=== PATIENT | male | born 1970 | race Asian ===

== ENCOUNTER → 2018-06-11 09:46 | Outpatient (CLI) | payer OTHER, SELFPAY ==
[2018-06-11 11:03] LABS: Hemoglobin A1C% w Est Avg Glu 8.5 % (4.0-6.0)
== END ==
PROVIDERS: PCP Family Medicine; Visit Provider Family Medicine
DX: E11.9 Type 2 diabetes mellitus without complications (principal)
CPT/HCPCS: 36415; 83036

== ENCOUNTER → 2018-09-01 09:50 | Outpatient (CLI) | payer OTHER, SELFPAY ==
[2018-09-01 11:00] LABS: Hemoglobin A1C% w Est Avg Glu 7.5 % (4.0-6.0)
[2018-09-01 11:56] LABS: Creatinine Urine Random 268.1 mg/dL
[2018-09-01 11:57] LABS: Alanine Aminotransferase 42 IU/L (21-72); Albumin 4.4 g/dL (3.5-5.0); Albumin Globulin Ratio 1.6 (1.0-2.8); Alkaline Phosphatase 94 U/L (38-126); Aspartate Aminotransferase 25 IU/L (17-59); BUN Creatinine Ratio 14.5 (6-22); Bilirubin Total 0.5 mg/dL (0.2-1.3); Blood Urea Nitrogen 16 mg/dL (9-20); Calcium 9.6 mg/dL (8.4-10.2); Carbon Dioxide 27 mmol/L (22-32); Chloride 101 mmol/L (98-107); Estimated Glomerular Filt Rate > 60.0 mL/min (>60); Globulin 2.7 g/dL (1.7-4.1); Glucose 118 mg/dL (70-100); HEMOLYSIS 15 (0-50); Potassium 4.7 mmol/L (3.4-5.1); Sodium 142 mmol/L (137-145); Total Protein 7.1 g/dL (6.3-8.2)
[2018-09-01 13:13] LABS: Microalbumi Creatinin Ratio Ur 1402.4 ug/mg CR (<30)
== END ==
PROVIDERS: PCP Family Medicine; Visit Provider Family Medicine
DX: E11.9 Type 2 diabetes mellitus without complications (principal)
CPT/HCPCS: 36415; 80053; 82043; 82570; 83036

== ENCOUNTER → 2018-12-03 10:41 | Outpatient (CLI) | payer OTHER, SELFPAY ==
[2018-12-03 12:07] LABS: Hemoglobin A1C% w Est Avg Glu 8.3 % (4.0-6.0)
== END ==
PROVIDERS: PCP Family Medicine; Visit Provider Family Medicine
DX: E11.9 Type 2 diabetes mellitus without complications (principal)
CPT/HCPCS: 36415; 83036

== ENCOUNTER → 2019-06-25 15:36 | Outpatient (CLI) | payer OTHER, SELFPAY ==
[2019-06-25 16:48] LABS: Hemoglobin A1C% w Est Avg Glu 8.4 % (4.0-6.0)
== END ==
PROVIDERS: PCP Family Medicine; Visit Provider Family Medicine
DX: E11.9 Type 2 diabetes mellitus without complications (principal)
CPT/HCPCS: 36415; 83036

== ENCOUNTER → 2019-08-19 11:11 | Outpatient (CLI) | payer OTHER, SELFPAY ==
--- NOTE | 2019-08-19 14:00 | DIET.PN ---
Diabetes Intake: Initial Assessment Assess: Mr. Mello is a 48 YOM referred for type 2 diabetes. He was diagnosed in 2017 with an HgbA1c > 15, Microalb:Cr of 1402.4 and Trig of 8770. He was placed on metformin and glyburide. He reports at that time he was drinking a 2 liter of pepsi /day and had no dietary restrictions. Upon dx he immediately discontinued drinking soda while making no other dietary changes. He was able to improve his blood glucose drastically with a change in beverage intake alone. He reports neuropathy in his lower extremities and is eager to make more lifestyle changes. 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 He admits to eating out, snacking on potato chips regularly and consuming large portions of rice and other starches. His vegetable intake is low while his intake of processed and sodium rich foods is rather high. Labs: Per pt report: A1c: 8.4 (07/04) FB-300 Chol: 145 LDL: 62 HDL: 30 Tr Meds: Metf: 1000mg BID; Glyburide: 2.5 am/pm; Atorvastatin: 80 mg Diet: per 24 hr recall: pancakes, cereal, cottage cheese, fruit, fish sticks, pizza, steak, rice, pasta, fast food Wt: 222 lb Ht: 70 in BMI: 31.9 DX: Altered nutrition related laboratory values related to impaired glucose metabolism, lack of previous exposure to nutrition information as evidenced by pt report, diagnosis of diabetes, previous diet high in refined carbohydrates. Intervention: 1. Completed intake assessment. Discussed barriers to care. 2. Discussed pathophysiology of diabetes. Reviewed A1c and its correlation to blood glucose numbers. Discussed recommended BG ranges. 3. Discussed importance of self-monitoring, how often, and when to check. 4. Reviewed hyper/hypoglycemia and treatment. 5. Reviewed safe disposal of equipment (strip/lancets/insulin needles). 6. Created SMART goals for pt self-care and success. 7. Discussed program curriculum outline and class needs based on individual goals. SMART Goals: 1. Patient would like to lose 20 lbs in 3 months by reducing 500 calories/day and increasing physical activity through obtaining a membership at local fitness facility. 2. Patient would like to improve blood glucose by monitoring fbg and alternating 2 hr PP mealtimes. He will begin counting carbohydrates aiming for 45-60 g CHO/meal. Monitor/Evaluate: Anticipate good compliance. Pt will attend full DSME program. Basic Nutrition class scheduled for Aug 25.
== END ==
PROVIDERS: PCP Family Medicine; Visit Provider Family Medicine
DX: E11.9 Type 2 diabetes mellitus without complications (principal); Z79.84 Long term (current) use of oral hypoglycemic drugs; E66.9 Obesity, unspecified; Z68.31 Body mass index [BMI] 31.0-31.9, adult; Z71.3 Dietary counseling and surveillance
CPT/HCPCS: G0108

== ENCOUNTER → 2019-08-25 14:08 | Outpatient (CLI) | payer OTHER, SELFPAY ==
--- NOTE | 2019-08-25 16:07 | DIET.PN ---
Diabetes: Healthy Eating 1 Intervention: ?Discussed pathophysiology of diabetes and impact of nutrition/diet on blood sugar control.? Discussed fed versus non-fed state.?? ?Reviewed importance of Balance, Variety, and Moderation. ?Discussed the effect of carbohydrates/protein/fat on blood sugar control.? ?Stressed importance of consistent carbohydrate intake at each meal and provided instructions for recommended servings/portions of carbohydrates/protein per meal. Provided educational material. ?Reviewed carbohydrate counting and measuring carbohydrate content via serving sizes and reading nutrition labels.? Provided handouts.?? ?Discussed the difference between simple versus complex carbohydrates and the effect of fiber on blood sugar control.? Discussed various methods to increase fiber content in diet. ?Discussed the plate method for creating more carbohydrate conscious balanced meals. ?Stressed importance of meal timing and not going >4-5 hours between meals. Encouraged adding protein to evening snack to support glucose control overnight. ?Discussed importance of making dietary habits part of lifestyle change.
== END ==
PROVIDERS: PCP Family Medicine; Visit Provider Family Medicine
DX: E11.21 Type 2 diabetes mellitus with diabetic nephropathy (principal); Z71.3 Dietary counseling and surveillance
CPT/HCPCS: G0109

== ENCOUNTER → 2019-09-04 09:35 | Outpatient (CLI) | payer OTHER, SELFPAY ==
--- NOTE | 2019-09-04 13:01 | DIET.PN ---
Diabetes: Healthy Eating 2 Intervention: Fats effects on glucose, weight, heart disease, cholesterol Sat Vs Unsat Protein- animal and plant based options Low, med, high fat meats Sugar substitutes Sodium Health claims Grocery shopping guidelines Eating away from home Alcohol Sick day guidelines
== END ==
PROVIDERS: PCP Family Medicine; Visit Provider Family Medicine
DX: E11.40 Type 2 diabetes mellitus with diabetic neuropathy, unspecified (principal); Z71.3 Dietary counseling and surveillance
CPT/HCPCS: G0109

== ENCOUNTER → 2019-09-22 14:11 | Outpatient (CLI) | payer OTHER, SELFPAY ==
--- NOTE | 2019-09-22 16:12 | DIET.PN ---
Exercise/Lifestyle change: 1. Importance of exercise 2. FITT (frequency, intensity, time, type) 3. Strength training tips and guidelines 4. Glucose monitoring/ranges before and after 5. Proper foot attire 6. Developing strategies for behavior change 7. SMART Goal Setting 8. Home exercise routine demonstration (as a class)
[2019-09-22 16:30] LABS: Hemoglobin A1C% w Est Avg Glu 8.8 % (4.0-6.0)
[2019-09-22 18:31] LABS: Creatinine Urine Random 171.3 mg/dL
[2019-09-22 18:31] LABS: Alanine Aminotransferase 33 IU/L (<50); Albumin 4.5 g/dL (3.5-5.0); Albumin Globulin Ratio 1.7 (1.0-2.8); Alkaline Phosphatase 99 U/L (38-126); Aspartate Aminotransferase 24 IU/L (17-59); BUN Creatinine Ratio 23.3 (6-22); Bilirubin Total 0.5 mg/dL (0.2-1.3); Blood Urea Nitrogen 21 mg/dL (9-20); Calcium 9.8 mg/dL (8.4-10.2); Carbon Dioxide 25 mmol/L (22-32); Chloride 103 mmol/L (98-107); Cholesterol 210 mg/dL (140-199); Estimated Glomerular Filt Rate > 60.0 mL/min (>60); Globulin 2.7 g/dL (1.7-4.1); Glucose 198 mg/dL (70-100); HDL Cholesterol 35 mg/dL (40-60); HEMOLYSIS < 15 (0-50); Potassium 4.3 mmol/L (3.4-5.1); Sodium 139 mmol/L (137-145); Total Protein 7.2 g/dL (6.3-8.2); Triglycerides 455 mg/dL (35-150)
[2019-09-22 19:15] LABS: Microalbumi Creatinin Ratio Ur 2422.6 ug/mg CR (<30)
== END ==
PROVIDERS: PCP Family Medicine; Visit Provider Family Medicine
DX: E11.9 Type 2 diabetes mellitus without complications (principal)
CPT/HCPCS: 36415; 80053; 80061; 82043; 82570; 83036; G0109

== ENCOUNTER → 2019-10-06 09:47 | Outpatient (CLI) | payer OTHER, SELFPAY ==
[2019-10-06 11:17] VITALS: BMI 31.6
--- NOTE | 2019-10-06 11:35 | DIET.PN ---
DIABETES Nutrition Assessment:? ASSESS:??Mr. Mello is 48? yom? referred for type 2 diabetes seen as part of DSME program. He reports difficulty in managing his BG related to his work schedule and travel. 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 He also reports he does not have a set lunch break which often results in eating too much in one sitting or snacking throughout his shift. ? LABS: Per pt report:? Morning B-250 ? MEDS:?? Metf: 1000 mg BID; Glyburide: 2.5 mg BID; Atorvastatin: 80 mg ? DIET: Per 24-hour recall:? B: Eggs, correa, toast or Cereal L: tuna sandwich w/ chips, apple, and oranges D: ribs/steak, backed potato ? Weight: 220 (down 2 lb) Ht: 70 in BMI: 31.6 ? Exercise:? walks 10,000-12,000 steps at work NUTRITION DX 1. Altered Nutrition related labs related to impaired glucose metabolism, lack of previous exposure to accurate nutrition information as evidenced by pt report, dx of diabetes, previous diet high in refined carbohydrates.? INTERVENTION(s): 1. Reviewed pathophysiology of diabetes and impact of nutrition/diet on blood sugar control.? Discussed fed versus non-fed state.?? 2. Discussed the effect of carbohydrates/protein/fat on blood sugar control.? Stressed importance of consistent carbohydrate intake at each meal and provided instructions for recommended servings/portions of carbohydrates/protein per meal. Provided pt with educational material. 3. Reviewed carbohydrate counting and measuring carbohydrate content via serving sizes and reading nutrition labels.? Provided handouts.?? 4. Discussed the difference between simple versus complex carbohydrates and the effect of fiber on blood sugar control.? Discussed various methods to increase fiber content in diet. 5. Stressed importance of meal timing and not going >4-5 hours between meals. Encouraged adding protein to evening snack to support glucose control overnight. Patient agreeable. 6. Provided recommendations for lunch and snack ideas throughout his work shift. Discussed meal planning and measuring snack portions to avoid over eating. Pt with good understanding. 7. Discussed healthy weight loss goals of 1-2lbs per week through diet and exercise.? Pt agreeable to walking at least 30 minutes daily. 8. Recommend monitoring fasting and alternating 2 hr PP mealtime glucose. MONITOR/EVALUATE: Anticipate good compliance.? Follow-up scheduled for 1 month.
== END ==
PROVIDERS: PCP Family Medicine; Visit Provider Family Medicine
DX: E11.9 Type 2 diabetes mellitus without complications (principal); Z79.84 Long term (current) use of oral hypoglycemic drugs
CPT/HCPCS: G0109

== ENCOUNTER → 2019-10-16 09:43 | Outpatient (CLI) | payer OTHER, SELFPAY ==
--- NOTE | 2019-10-16 12:24 | DIET.PN ---
Diabetes Physiology: Intervention 1. Diabetes physiology 2. Detecting and treatment of acute and chronic complications 3. Diagnosis of and difference in types of diabetes 4. Self-monitoring and pattern management a. Demonstrate glucometer and control testing b. Explain BG results and action to take when out of range. 5. Foot , eye, dental care 6. Medications a. Oral medication classification b. Injectable c. Insulin i. Injection protocol i. Other delivery methods
== END ==
PROVIDERS: PCP Family Medicine; Visit Provider Family Medicine
DX: E11.21 Type 2 diabetes mellitus with diabetic nephropathy (principal); Z71.3 Dietary counseling and surveillance
CPT/HCPCS: G0109

== ENCOUNTER → 2019-11-16 10:57 | Outpatient (CLI) | payer OTHER, SELFPAY ==
--- NOTE | 2019-11-16 13:02 | DIET.PN ---
Diabetes Follow Up Assess: Met for Mr Mello?s 3 mo follow up visit. He admits to challenges with glucose control related to eating habits and portion control. He continues to travel long distances for work and alternated day and night shifts. He reports trying to cut down on portion sizes, but continues to eat processed foods such as chips, sloppy joes, frozen meals, and dines out often. In reviewing new labs, he does not appear too concerned with results. Discussed magnitude of elevated results. He admits to often forgetting to monitor his BG or take is evening medications. Labs: HbgA1c: 8.8 (baseline-8.4) TC: 210 (baseline-145) LDL: TNP (62) HDL: 35 (30) Tr (267 Meds: metformin 1000mg BID; Glyburide 2.5mg BID Dietary changes: working on cutting out processed foods and portion control Ht:70in Wt: 217 (baseline-222) BMI: 31.1 Nutrition DX: Altered nutrition related laboratory values related to impaired glucose metabolism, lack of previous exposure to nutrition information as evidenced by pt report, diagnosis of diabetes, previous diet high in refined carbohydrates. Intervention: 1. Completed follow up assessment. Reviewed barriers to care. 2. Reviewed new labs and importance of continued BG monitoring. Discussed magnitude of elevated results including A1c, Lipid panel, microalb/cr and the possibility of need for additional medication management. Pt with good understanding. 3. Reviewed SMART goals and made modifications where appropriate including wt management, activity, and A1c goals. 4. Discussed plan for ongoing support. Provided information for continued support and success. SMART goals: 1. Pt would like to manage his blood sugar by exercising 4-5 x/wk for 30 minutes. 2. Pt will use days off to meal prep to provide portion control and eliminate fast food stops. 3. Pt will take medications as directed. Note: Discussed increasing glyburide to 5 mg BID or possible need for long acting insulin. Discussed barriers to management including pt often forgetting to take his evening medications. Monitor/Evaluate: Pt will follow up in 1 mo to review weight, BG log, food record. 3 mo to discuss new labs and barriers to care.
== END ==
PROVIDERS: PCP Family Medicine; Referring Provider Family Medicine; Visit Provider Family Medicine
DX: E11.69 Type 2 diabetes mellitus with other specified complication (principal); Z79.84 Long term (current) use of oral hypoglycemic drugs; E66.9 Obesity, unspecified; Z68.31 Body mass index [BMI] 31.0-31.9, adult; Z71.3 Dietary counseling and surveillance
CPT/HCPCS: G0109

== ENCOUNTER → 2020-08-08 08:41 | Outpatient (CLI) | payer OTHER, SELFPAY ==
[2020-08-08 09:36] LABS: Hemoglobin A1C% w Est Avg Glu 11.9 % (4.0-6.0)
[2020-08-08 09:52] LABS: Alanine Aminotransferase 34 IU/L (<50); Albumin 4.1 g/dL (3.5-5.0); Albumin Globulin Ratio 1.4 (1.0-2.8); Alkaline Phosphatase 141 U/L (38-126); Aspartate Aminotransferase 23 IU/L (17-59); BUN Creatinine Ratio 23.7 (6-22); Bilirubin Total 0.5 mg/dL (0.2-1.3); Blood Urea Nitrogen 22 mg/dL (9-20); Calcium 9.3 mg/dL (8.4-10.2); Carbon Dioxide 29 mmol/L (22-32); Chloride 101 mmol/L (98-107); Cholesterol 264 mg/dL (140-199); Creatinine Urine Random 128.8 mg/dL; Estimated Glomerular Filt Rate > 60.0 mL/min (>60); Glucose 325 mg/dL (70-100); HDL Cholesterol 33 mg/dL (40-60); HEMOLYSIS < 15 (0-50); Potassium 4.5 mmol/L (3.4-5.1); Sodium 135 mmol/L (137-145); Total Protein 7.1 g/dL (6.3-8.2)
[2020-08-08 10:03] LABS: Triglycerides 1137 mg/dL (35-150)
[2020-08-08 11:11] LABS: Microalbumi Creatinin Ratio Ur 3284.1 ug/mg CR (<30)
== END ==
PROVIDERS: PCP Family Medicine; Referring Provider Family Medicine; Visit Provider Family Medicine
DX: E11.9 Type 2 diabetes mellitus without complications (principal)
CPT/HCPCS: 36415; 80053; 80061; 82043; 82570; 83036

== ENCOUNTER → 2020-11-07 08:57 | Outpatient (CLI) | payer OTHER, SELFPAY ==
[2020-11-07 10:08] LABS: Cholesterol 220 mg/dL (140-199); HDL Cholesterol 34 mg/dL (40-60)
[2020-11-07 10:19] LABS: Triglycerides 745 mg/dL (35-150)
== END ==
PROVIDERS: PCP Family Medicine; Referring Provider Family Medicine; Visit Provider Family Medicine
DX: E11.9 Type 2 diabetes mellitus without complications (principal); E78.1 Pure hyperglyceridemia; E78.5 Hyperlipidemia, unspecified
CPT/HCPCS: 36415; 80061; 83036

== ENCOUNTER → 2021-02-04 11:27 | Outpatient (CLI) | payer OTHER, SELFPAY ==
[2021-02-04 13:08] LABS: Hemoglobin A1C% w Est Avg Glu 11.6 % (4.0-6.0)
== END ==
PROVIDERS: PCP Family Medicine; Referring Provider Family Medicine; Visit Provider Family Medicine
DX: E11.8 Type 2 diabetes mellitus with unspecified complications (principal)
CPT/HCPCS: 83036

== ENCOUNTER → 2022-04-02 10:37 | Outpatient (CLI) | payer OTHER, SELFPAY ==
[2022-04-02 12:28] LABS: Hemoglobin A1C% w Est Avg Glu 10.5 % (4.0-6.0)
[2022-04-02 12:53] LABS: HEMOLYSIS 35 (0-50)
[2022-04-02 12:54] LABS: Triglycerides 2514 mg/dL (35-150)
[2022-04-02 14:56] LABS: Creatinine Urine Random 186.3 mg/dL
[2022-04-02 15:37] LABS: Microalbumi Creatinin Ratio Ur 6285.5 ug/mg CR (<30)
[2022-04-02 17:05] LABS: Alanine Aminotransferase 21 IU/L (<50); Albumin 3.8 g/dL (3.5-5.0); Albumin Globulin Ratio 1.3 (1.0-2.8); Alkaline Phosphatase 124 U/L (38-126); Aspartate Aminotransferase 28 IU/L (17-59); BUN Creatinine Ratio 20.4 (6-22); Bilirubin Total 0.6 mg/dL (0.2-1.3); Blood Urea Nitrogen 20 mg/dL (9-20); Calcium 8.7 mg/dL (8.4-10.2); Carbon Dioxide 21 mmol/L (22-32); Chloride 103 mmol/L (98-107); Cholesterol 271 mg/dL (140-199); Estimated Glomerular Filt Rate > 60 mL/min (>60); Glucose 263 mg/dL (70-100); HDL Cholesterol 27 mg/dL (40-60); Potassium 4.3 mmol/L (3.4-5.1); Sodium 132 mmol/L (137-145); Total Protein 6.8 g/dL (6.3-8.2)
== END ==
PROVIDERS: PCP Family Medicine; Referring Provider Family Medicine; Visit Provider Family Medicine
DX: E11.8 Type 2 diabetes mellitus with unspecified complications (principal); E78.1 Pure hyperglyceridemia; E78.5 Hyperlipidemia, unspecified
CPT/HCPCS: 36415; 80053; 80061; 82043; 82570; 83036

== ENCOUNTER → 2022-07-05 08:51 | Outpatient (CLI) | payer OTHER, SELFPAY ==
[2022-07-05 09:27] LABS: Hemoglobin A1C% w Est Avg Glu 11.1 % (4.0-6.0)
[2022-07-05 09:35] LABS: Alanine Aminotransferase 26 IU/L (<50); Albumin 3.9 g/dL (3.5-5.0); Albumin Globulin Ratio 1.3 (1.0-2.8); Alkaline Phosphatase 124 U/L (38-126); Aspartate Aminotransferase 21 IU/L (17-59); BUN Creatinine Ratio 22.9 (6-22); Bilirubin Total 0.6 mg/dL (0.2-1.3); Blood Urea Nitrogen 24 mg/dL (9-20); Calcium 8.8 mg/dL (8.4-10.2); Carbon Dioxide 25 mmol/L (22-32); Chloride 102 mmol/L (98-107); Cholesterol 191 mg/dL (140-199); Estimated Glomerular Filt Rate > 60 mL/min (>60); Globulin 2.9 g/dL (1.7-4.1); Glucose 282 mg/dL (70-100); HDL Cholesterol 36 mg/dL (40-60); HEMOLYSIS < 15 (0-50); Potassium 4.3 mmol/L (3.4-5.1); Sodium 137 mmol/L (137-145); Total Protein 6.8 g/dL (6.3-8.2)
[2022-07-05 09:45] LABS: Triglycerides 687 mg/dL (35-150)
[2022-07-05 19:26] LABS: Microalbumi Creatinin Ratio Ur 5726.6 ug/mg CR (<30)
== END ==
PROVIDERS: PCP Family Medicine; Referring Provider Family Medicine; Visit Provider Family Medicine
DX: E11.8 Type 2 diabetes mellitus with unspecified complications (principal); E78.5 Hyperlipidemia, unspecified
CPT/HCPCS: 36415; 80053; 80061; 82043; 82570; 83036

== ENCOUNTER → 2022-09-20 11:10 | Outpatient (CLI) | payer OTHER, SELFPAY ==
[2022-09-20 12:19] LABS: Influenza A - CEPHEID Flu A NEGATIVE (NEGATIVE); Influenza B - CEPHEID Flu B NEGATIVE (NEGATIVE); Respiratory Syncytial Virus Negative (Negative)
[2022-09-20 12:55] LABS: COVID-19 CEPHEID 4-PLEX PCR POSITIVE (Negative)
== END ==
PROVIDERS: PCP Family Medicine; Visit Provider Registered Nurse
DX: J06.9 Acute upper respiratory infection, unspecified (principal)
CPT/HCPCS: 0241U

== ENCOUNTER → 2022-09-27 09:15 | Outpatient (CLI) | payer OTHER, SELFPAY ==
[2022-09-27 10:03] LABS: Influenza A - CEPHEID Flu A NEGATIVE (NEGATIVE); Influenza B - CEPHEID Flu B NEGATIVE (NEGATIVE); Respiratory Syncytial Virus Negative (Negative)
[2022-09-27 11:31] LABS: COVID-19 CEPHEID 4-PLEX PCR POSITIVE (Negative)
== END ==
PROVIDERS: PCP Family Medicine; Visit Provider Nurse Practitioner Family
DX: J06.9 Acute upper respiratory infection, unspecified (principal)
CPT/HCPCS: 0241U

== ENCOUNTER → 2022-09-27 09:30 | Outpatient (CLI) | payer OTHER, SELFPAY ==
--- NOTE | 2022-09-27 09:31 | DI.RAD.S_ITS ---
PROCEDURE: XR CHEST 2V INDICATIONS: cough TECHNIQUE: 2 views of the chest were acquired. COMPARISON: None. FINDINGS: Surgical changes and devices: None. Lungs and pleura: Lungs are clear. No pleural effusions or pneumothorax. Mediastinum: Mediastinal contours are normal. Heart size is normal. Bones and chest wall: No suspicious bony abnormalities. Soft tissues appear unremarkable. IMPRESSION: Normal two view chest x-ray Approved by: Refugio Foster M.D. on 09/27/2022 at 13:46
== END ==
PROVIDERS: PCP Family Medicine; Referring Provider Nurse Practitioner Family; Visit Provider Nurse Practitioner Family
DX: R05.9 Cough, unspecified (principal); J06.9 Acute upper respiratory infection, unspecified
CPT/HCPCS: 0241U; 71046

== ENCOUNTER → 2022-12-01 08:42 | Outpatient (CLI) | payer OTHER, SELFPAY ==
[2022-12-01 09:34] LABS: Hemoglobin A1C% w Est Avg Glu 11.3 % (4.0-6.0)
[2022-12-01 09:35] LABS: Cholesterol 292 mg/dL (140-199); HDL Cholesterol 32 mg/dL (40-60)
[2022-12-01 09:48] LABS: Triglycerides 1176 mg/dL (35-150)
== END ==
PROVIDERS: PCP Family Medicine; Referring Provider Family Medicine; Visit Provider Family Medicine
DX: E11.8 Type 2 diabetes mellitus with unspecified complications (principal); E78.5 Hyperlipidemia, unspecified
CPT/HCPCS: 36415; 80061; 83036

== ENCOUNTER → 2023-09-23 10:58 | Outpatient (CLI) | payer OTHER, SELFPAY ==
[2023-09-23 13:02] LABS: Add Manual Diff / Slide Review NO; Basophils Absolute Auto 100 /uL (0-100); Eosinophils Absolute Auto 200 /uL (0-450); Eosinophils Percent Auto 1.9 % (2-4); Hematocrit 44.3 % (41-53); Hemoglobin 15.5 g/dL (13.5-17.5); Lymphocytes Absolute Auto 2800 /uL (1100-4500); Lymphocytes Percent Auto 27.6 % (25-40); Mean Corpuscular HGB Conc 34.9 % (30-36); Mean Corpuscular Hemoglobin 28.9 PG (26-34); Mean Corpuscular Volume 82.9 fL (80-100); Monocytes Absolute Auto 700 /uL (0-900); Monocytes Percent Auto 6.5 % (3-14); Neutrophils Absolute Auto 6400 /uL (1500-7000); Platelet Count 171 X10^3/uL (150-400); Red Blood Cell Count 5.34 X10^6/uL (4.5-5.9); Red Cell Distribution Width 13.6 % (11.6-14.8); White Blood Cell Count 10.1 X10^3/uL (4.5-11.0)
[2023-09-23 13:15] LABS: Alanine Aminotransferase 27 IU/L (<50); Albumin 3.9 g/dL (3.5-5.0); Albumin Globulin Ratio 1.3 (1.0-2.8); Alkaline Phosphatase 108 U/L (38-126); Aspartate Aminotransferase 23 IU/L (17-59); BUN Creatinine Ratio 18.7 (6-22); Bilirubin Total 0.9 mg/dL (0.2-1.3); Blood Urea Nitrogen 26 mg/dL (9-20); Calcium 9.5 mg/dL (8.4-10.2); Carbon Dioxide 28 mmol/L (22-32); Chloride 99 mmol/L (98-107); Cholesterol 186 mg/dL (140-199); Estimated Glomerular Filt Rate > 60 mL/min (>60); Glucose 282 mg/dL (70-100); HDL Cholesterol 36 mg/dL (40-60); HEMOLYSIS < 15 (0-50); Potassium 4.3 mmol/L (3.4-5.1); Sodium 134 mmol/L (137-145); Total Protein 6.9 g/dL (6.3-8.2); Triglycerides 488 mg/dL (35-150)
[2023-09-24 19:44] LABS: Creatinine Urine Random 230.6 mg/dL
[2023-09-24 21:17] LABS: Microalbumi Creatinin Ratio Ur 5203.8 ug/mg CR (<30); Microalbumin Urine Random > 1200.0 mg/dL (0-1.6)
== END ==
PROVIDERS: PCP Family Medicine; Referring Provider Family Medicine; Visit Provider Family Medicine
DX: E11.8 Type 2 diabetes mellitus with unspecified complications (principal); E11.3299 Type 2 diabetes mellitus with mild nonproliferative diabetic retinopathy without macular edema, unspecified eye
CPT/HCPCS: 36415; 80053; 80061; 82043; 82570; 85025